=== PATIENT | male | born 1955 | race Two or more races ===

== ENCOUNTER 2016-03-24 12:01 | Emergency (ER) | payer OTHER ==
[2016-03-24 12:24] VITALS: O2SAT 93
[2016-03-24] MEDS ORDERED: ONDANSETRON 4 MG/2 ML VIAL IVP ONE (13:46)
[2016-03-24] MEDS ORDERED: NS 1,000 ML IV ONE ×2 (13:46→15:11)
[2016-03-24] MEDS ORDERED: DEXAMETHASONE 4 MG/ML VIAL IVP ONE (13:47)
[2016-03-24] MEDS ORDERED: IPRATROPIUM/ALBUTEROL 3 ML DEYVIAL IH ONE (13:53)
[2016-03-24 14:02] LABS: % IMMATURE GRANULYOCYTES 0.3 % (0.0-1.1); ABSOLUTE IMMATURE GRANULOCYTES 0.02 10^3/uL (0.00-0.10); ADD DIFF? NO; ADD MORPH? NO; ADD SCAN? NO; ATYPICAL LYMPHOCYTE FLAG 0 (0-99); FRAGMENT RBC FLAG 0 (0-99); HEMOGLOBIN 14.9 g/dL (13.7-17.5); LEFT SHIFT FLG 0 (0-99); LIPEMIA HEMOLYSIS FLAG 90 (0-99); MEAN CELL HEMOGLOBIN 31.6 pg (27.9-34.1); MEAN CELL HEMOGLOBIN CONCENTR. 34.7 g/dL (32.4-36.7); MEAN CELL VOLUME 91.3 fL (81.5-99.8); MEAN PLATELET VOLUME 10.7 fL (8.7-11.7); PLATELET CLUMPS FLAG 0 (0-99); PLATELET COUNT 144 10^3/uL (150-400); RED BLOOD CELL COUNT 4.71 10^6/uL (4.40-6.38); RED CELL DISTRIBUTION WIDTH 12.5 % (11.5-15.2)
[2016-03-24 14:14] LABS: ALBUMIN 4.4 g/dL (3.5-5.0); BILIRUBIN,TOTAL 1.3 mg/dL (0.1-1.4); CALCIUM 9.7 mg/dL (8.5-10.4); CREATININE 1.4 mg/dL (0.7-1.3); POTASSIUM 4.4 mEq/L (3.5-5.2); TOTAL PROTEIN 7.5 g/dL (6.3-8.2)
[2016-03-24] MEDS ORDERED: OSELTAMIVIR PHOSPHATE 75 MG CAP PO ONE (14:36)
--- NOTE | 2016-03-24 15:10 | UCPHY ---
H & P Patient Type: New Chief Complaint Nursing Narrative: traveling [place] vomiting since coming to [place] Time Seen by Provider: 03/24/16 13:30 HPI/ROS: 60-year-old male with a history of Parkinson's traveling from [place] for work here in [place] presents complaining of headache, fevers chills and believes he may have altitude sickness. He has had a slight cough and some nasal congestion. No vomiting Review of systems As per HPI General positive fever positive chills no weakness HEENT no eye pain no eye discharge. No eye redness, no sore throat Respiratory positive cough, no shortness of breath Cardiac no chest pain, no peripheral edema GI no abdominal pain, no diarrhea, no constipation, positive nausea, no vomiting no flank pain, no hematuria, no dysuria Musculoskeletal no myalgias, no joint pain Heme no easy bruising, no easy bleeding Endo no polyuria, no polydipsia Skin no rashes, no pruritus Neuro no syncope, no dizziness, positive headaches Psych is no suicidal ideation, no homicidal ideation Source: Patient - Personal History Current Tetanus/Diphtheria Vaccine: Yes - Medical/Surgical History Hx Asthma: Yes Hx Chronic Respiratory Disease: No Hx Diabetes: No Hx Cardiac Disease: Yes Hx Renal Disease: No Hx Cirrhosis: No Hx Alcoholism: No Hx HIV/AIDS: No Hx Splenectomy or Spleen Trauma: No Other PMH: parnkinsons/brain stimulator/htn - Family History Significant Family History: No pertinent family hx - Social History Smoking Status: Never smoked Alcohol Use: None Drug Use: None - Physical Exam Exam: 60-year-old male alert and oriented in no acute distress, low-grade fever, frequent cough Patient appears flushed Atraumatic normocephalic Oropharynx dry mucosa no erythema no exudate Neck supple Lungs diminished bilaterally, no rhonchi Heart rapid rate regular rhythm Abdomen normoactive bowel sounds soft nontender Extremities no cyanosis clubbing or edema Skin no rash Constitutional: Initial Vital Signs Temperature (C) 36.1 C 03/24/16 12:19 Heart Rate 73 03/24/16 12:19 Respiratory Rate 24 H 03/24/16 12:19 Blood Pressure 198/105 H 03/24/16 12:19 O2 Sat (%) 93 03/24/16 12:19 O2 Delivery Mode Room Air Allergies/Adverse Reactions: Penicillins Allergy (Verified 03/24/16 12:16) Home Medications: Medication Instructions Recorded Advair 100/50 (*) 03/24/16 Albuterol 03/24/16 Atenolol 03/24/16 Carbidopa-Levo 10-100 mg Odt 03/24/16 Celexa 03/24/16 Lasix 03/24/16 [place] 5/325 (*) 03/24/16 Oseltamivir Phosphate [Tamiflu 75 75 mg PO BID #10 cap 03/24/16 mg (*)] Requip 03/24/16 Sinemet 10/100 MG (*) 03/24/16 Singulair 03/24/16 Stalevo 100 Tablet 03/24/16 Zocor 03/24/16 traZODone 03/24/16 Medical Decision Making ED Course/Re-evaluation: Patient seen and evaluated for headache fever cough myalgias and concern for possible altitude sickness per patient IV established IV fluids and Decadron 4 mg given Patient with history of reactive airway with frequent cough, given DuoNeb. Influenza sent Labs sent Labs within normal limits, BUN and creatinine consistent with dehydration Influenza positive Given Tamiflu Also given 2 L IV normal saline Impression Influenza a Dehydration Complicated by new arrival to altitude and parkinsons. plan Encourage increased fluids Tamiflu twice daily x5 days Acetaminophen every 4 hours as needed for fever Return if worsening - Data Points Laboratory Results: Laboratory Results 03/24/16 13:55 03/24/16 13:55 03/24/16 13:55 WBC 6.85 10^3/uL (3.80-9.50) RBC 4.71 10^6/uL (4.40-6.38) Hgb 14.9 g/dL (13.7-17.5) Hct 43.0 % (40.0-51.0) MCV 91.3 fL (81.5-99.8) MCH 31.6 pg (27.9-34.1) MCHC 34.7 g/dL (32.4-36.7) RDW 12.5 % (11.5-15.2) Plt Count 144 L 10^3/uL (150-400) MPV 10.7 fL (8.7-11.7) Neut % (Auto) 76.6 H % (39.3-74.2) Lymph % (Auto) 5.4 L % (15.0-45.0) [place] % (Auto) 16.6 H % (4.5-13.0) Eos % (Auto) 0.7 % (0.6-7.6) Baso % (Auto) 0.4 % (0.3-1.7) Nucleat RBC Rel Count 0.0 % (0.0-0.2) Absolute Neuts (auto) 5.24 10^3/uL (1.70-6.50) Absolute Lymphs (auto) 0.37 L 10^3/uL (1.00-3.00) Absolute Monos (auto) 1.14 H 10^3/uL (0.30-0.80) Absolute Eos (auto) 0.05 10^3/uL (0.03-0.40) Absolute Basos (auto) 0.03 10^3/uL (0.02-0.10) Absolute Nucleated RBC 0.00 10^3/uL (0-0.01) Immature Gran % 0.3 % (0.0-1.1) Immature Gran # 0.02 10^3/uL (0.00-0.10) Sodium 142 mEq/L (134-144) Potassium 4.4 mEq/L (3.5-5.2) Chloride 102 mEq/L (97-110) Carbon Dioxide 27 mEq/l (22-31) Anion Gap 13 mEq/L (8-16) BUN 30 H mg/dL (7-23) Creatinine 1.4 H mg/dL (0.7-1.3) Estimated GFR 52 Glucose 116 H mg/dL (70-100) Calcium 9.7 mg/dL (8.5-10.4) Total Bilirubin 1.3 mg/dL (0.1-1.4) AST 40 IU/L (17-59) ALT 29 IU/L (21-72) Alkaline Phosphatase 45 IU/L (38-126) Total Protein 7.5 g/dL (6.3-8.2) Albumin 4.4 g/dL (3.5-5.0) Influenza Typ A,B (DFA) POSITIVE FOR FLU A H (NEGATIVE) Medications Given: Discontinued Medications Acetaminophen (Tylenol) 975 mg PO EDNOW ONE Stop: 03/24/16 16:11 Last Admin: 03/24/16 16:16 Dose: 975 mg Albuterol/Ipratropium (Duoneb) 3 ml IH EDNOW ONE Stop: 03/24/16 13:54 Last Admin: 03/24/16 14:31 Dose: 3 ml Dexamethasone (Decadron Injection) 4 mg IVP EDNOW ONE Stop: 03/24/16 13:48 Last Admin: 03/24/16 14:30 Dose: 4 mg Sodium Chloride (Ns) 1,000 mls @ 0 mls/hr IV ONCE ONE PRN Reason: Wide Open Stop: 03/24/16 13:47 Last Admin: 03/24/16 14:03 Dose: 1,000 mls Sodium Chloride (Ns) 1,000 mls @ 0 mls/hr IV ONCE ONE PRN Reason: Wide Open Stop: 03/24/16 15:12 Last Admin: 03/24/16 15:15 Dose: 1,000 mls Oseltamivir Phosphate (Tamiflu) 75 mg PO EDNOW ONE Stop: 03/24/16 14:37 Last Admin: 03/24/16 16:02 Dose: 75 mg Departure - Departure Disposition: Home, Routine, Self-Care Clinical Impression: Influenza A Condition: Good Instructions: Influenza (ED) Referrals: OUT OF STATE,. [Primary Care Provider] - As per Instructions Stand Alone Forms: Airline Excuse Prescriptions: Oseltamivir Phosphate [Tamiflu 75 mg (*)] 75 mg PO BID #10 cap - PQRS PQRS Measurement: na
[2016-03-24] MEDS ORDERED: ACETAMINOPHEN 325 MG TAB PO ONE (16:10)
[2016-03-24 16:19] VITALS: BP 148/99; PULSE 77; RESP 20; TEMP 100.4
== END 2016-03-24 16:16 | disposition home or self-care (01) ==
LOC: CED 12:01
DX: J10.1 Influenza due to other identified influenza virus with other respiratory manifestations (principal); G20 Parkinson's disease
CPT/HCPCS: 96361; 96374; G0463; J1100; 80053-PO; 85025-PO; 87400-PO; 99205-PO